=== PATIENT | male | born 1965 | race African-American/Black ===

== ENCOUNTER 2025-01-22 08:03 | Emergency (ER) | payer BC, OTHER ==
[~2025-01-22] VITALS: Ht 172.7 cm; Wt 75.0 kg
[2025-01-22 08:05] VITALS: O2SAT 100
[2025-01-22] MEDS: HYDROCODONE/ACETAMINOPHEN 5/325MG TABLET PO ONE (08:27)
[2025-01-22] MEDS: SODIUM CHLORIDE 0.9% 1,000 ML IV ONE (08:27)
[2025-01-22 08:35] LABS: BASOPHILS % 0.7 % (0.0-2.0); EOSINOPHILS % 0.4 % (0.0-5.0); HEMATOCRIT. 46.6 % (42.0-52.0); HEMOGLOBIN. 15.7 g/dL (14.0-18.0); LYMPHOCYTES % 41.4 % (20.0-50.0); MEAN PLATELET VOLUME 9.3 fl (7.4-10.4); MONOCYTES % 6.9 % (2.0-8.0); NEUTROPHILS % 50.6 % (40.0-76.0); PLATELET 168 x1000/uL (130-400); RED BLOOD CELL COUNT 4.68 mill/uL (4.7-6.1); RED CELL DISTRIBUTION WIDTH 17.1 % (11.6-14.6)
[2025-01-22 09:04] LABS: CREATININE 0.8 mg/dL (0.6-1.3); UREA NITROGEN BLOOD 6 mg/dL (9-23)
[2025-01-22 09:06] LABS: ASPARTATE AMINOTRANSFERASE 36 IU/L (<34); BILIRUBIN DIRECT 0.3 mg/dL (<=3.0); BILIRUBIN TOTAL 0.9 mg/dL (0.1-1.0); PROTEIN TOTAL 7.2 g/dL (6.0-8.3)
[2025-01-22 09:16] LABS: INR 0.9
[2025-01-22] MEDS: FOLIC ACID 1 MG, THIAMINE HCL 100 MG, MVI, ADULT NO.1 10 ML in DEXTROSE 5% WATER 1,000 ML IV ONE (09:41)
[2025-01-22 10:34] VITALS: BP 134/76; PULSE 81; RESP 12; TEMP 36.7; O2SAT 99
== END 2025-01-22 11:22 | disposition home or self-care (01) ==
LOC: ER 08:03 → UNDOADMIN 09:50 → 6EST 09:50 → EDBEDREQ 09:52 → EDBEDREQTM 09:52 → ENRESERV 10:19
DX: G89.29 Other chronic pain (principal); M54.9 Dorsalgia, unspecified; F17.210 Nicotine dependence, cigarettes, uncomplicated; Z79.899 Other long term (current) drug therapy
CPT/HCPCS: 99285; 74176; 80076; 80048; 83690; 83735; 85025; 85610; 36415; J3490 ×2; J3411; J7070; J7030